=== PATIENT | male | born 1995 | race African-American/Black ===

== ENCOUNTER 2018-08-07 13:23 | Emergency (ER) | payer OTHER ==
[~2018-08-07] VITALS: Ht 193 cm; Wt 89.1 kg
--- NOTE | 2018-08-07 14:02 | REP ---
Clinical: Trauma. Technique: AP, lateral, bilateral oblique and sunrise views left knee . Findings: The osseous structures and joint spaces are intact and normal. There is no evidence for acute fracture or dislocation. No joint effusion is appreciated. Surrounding soft tissues are unremarkable. No subcutaneous emphysema or radiodense foreign body. Impression: Normal examination. No acute fracture or dislocation. Electronically Signed by Michele Pichardo MD 08/07/2018 01:54 P
[2018-08-07 14:32] VITALS: BP 139/79
== END 2018-08-07 14:36 | disposition home or self-care (01) ==
LOC: M ED 13:23
DX: S83.92XA Sprain of unspecified site of left knee, initial encounter (principal); X50.9XXA Other and unspecified overexertion or strenuous movements or postures, initial encounter; Y92.89 Other specified places as the place of occurrence of the external cause

== ENCOUNTER 2019-12-07 12:36 | Emergency (ER) | payer OTHER ==
[~2019-12-07] VITALS: Ht 193 cm; Wt 96.2 kg
[2019-12-07 12:36] VITALS: BP 139/84
== END 2019-12-07 13:34 | disposition home or self-care (01) ==
LOC: M ED 12:36
DX: S40.861A Insect bite (nonvenomous) of right upper arm, initial encounter (principal); W57.XXXA Bitten or stung by nonvenomous insect and other nonvenomous arthropods, initial encounter; Y92.89 Other specified places as the place of occurrence of the external cause

== ENCOUNTER 2020-06-14 23:20 | Emergency (ER) | payer OTHER ==
[~2020-06-14] VITALS: Ht 193 cm; Wt 99.9 kg
[2020-06-14 23:21] VITALS: BP 133/88
[2020-06-15] MEDS ORDERED: KETOROLAC 30 MG/ML 1ML VIAL IV ONE (02:00)
[2020-06-15] MEDS ORDERED: METOCLOPRAMIDE INJ 10MG/2ML VIAL (J2765 PER 1) IV ONE (02:00)
--- NOTE | 2020-06-15 02:59 | REPVR ---
PROCEDURE INFORMATION: Exam: XR Sinus, Minimum of 3 Views, Complete Exam date and time: 06/15/2020 2:28 AM Age: 25 years old Clinical indication: Face pain; Additional info: Left maxillary and frontal sinus pain TECHNIQUE: Imaging protocol: XR of the sinuses and paranasal structures, minimum of 3 views. Complete exam. COMPARISON: No relevant prior studies available. FINDINGS: Orbits: No osseous abnormality of the orbits or nasal bones Sinuses: Paranasal sinuses are normally aerated. No mucosal thickening or evidence of mass. No air-fluid level. Nasal cavity/Septum: Nasal septum shows no significant deviation. Other findings: No destructive or blastic process. No acute fracture IMPRESSION: Unremarkable radiographic series of the paranasal sinuses. Electronically signed by: Geo Hartman On 06/15/2020 02:59:39 AM
== END 2020-06-15 04:23 | disposition home or self-care (01) ==
LOC: M ED 23:20
DX: R51.9 Headache, unspecified (principal)
CPT/HCPCS: 70220; 96374; 96375; 99283; J1885; J2765